=== PATIENT | male | born 1945 | race Caucasian/White ===

== ENCOUNTER 2021-01-07 13:37 | Emergency (ER) | payer OTHER ==
[2021-01-07 13:57] VITALS: BMI 27.0
[2021-01-07 14:27] LABS: EPI CELLS 1 /uL (0-25.1); HYALINE CASTS 1 /uL (0-3.1); PH,URINE 6.5 (5.0-8.0); URINE APPEARANCE TURBID; URINE BACTERIA >9,000 /uL (0-1359); URINE BILIRUBIN NEGATIVE (NEGATIVE); URINE COLOR YELLOW; URINE GLUCOSE (UA) NEGATIVE (NEGATIVE); URINE KETONE NEGATIVE (NEGATIVE); URINE LEUK ESTERASE 3+ (NEGATIVE); URINE NITRITE POSITIVE (NEGATIVE); URINE PROTEIN 2+ (NEGATIVE); URINE RBC 1248 /uL (0-23.9); URINE UROBILINOGEN 0.2 mg/dL (0.2-1.0); URINE WBC 4599 /uL (0-25.8)
[2021-01-07] MEDS ORDERED: CEFTRIAXONE 1 GM/50 ML BAG ONE (14:50)
[2021-01-07] MEDS ORDERED: SULFAMETHOXAZOLE/TRIMETHOPRIM 800MG/160MG D.S. TABLET PO ONE (14:50)
[2021-01-07] MEDS ORDERED: SULFAMETHOXAZOLE/TRIMETHOPRIM 800MG/160MG D.S. TABLET ONE (14:51)
[2021-01-07 15:16] LABS: BASO % 1.3 % (0-2.0); EOS % 2.3 % (0-4.5); HEMATOCRIT 38.4 % (35.4-49); HEMOGLOBIN 13.2 GM/dL (11.7-16.9); LYMPH % 8.3 % (8-40); MCH 32.3 pg (25.7-33.7); MCHC 34.3 g/dl (32.0-35.9); MEAN CELL VOLUME 94.2 fl (80-96); MEAN PLT VOLUME 8.3 fl (7.5-11.1); MONO % 8.9 % (3.8-10.2); NEUT % 79.2 % (42.8-82.8); PLATELET COUNT 210 K/MM3 (134-434); RBC 4.07 M/mm3 (4.00-5.60); RDW 14.2 % (11.9-15.9); WHITE BLOOD COUNT 9.9 K/mm3 (4.0-10.0)
[2021-01-07 15:42] LABS: CALCIUM 8.8 mg/dL (8.5-10.1)
[2021-01-07 15:43] LABS: BLOOD UREA NITROGEN 16.9 mg/dL (7-18)
[2021-01-07 15:46] LABS: CREATININE 0.6 mg/dL (0.55-1.3)
[2021-01-07 16:14] VITALS: BP 155/85; PULSE 82; TEMP 98
== END 2021-01-07 16:00 | disposition home or self-care (01) ==
LOC: JER 13:37
DX: N40.0 Benign prostatic hyperplasia without lower urinary tract symptoms (principal); T83.511A Infection and inflammatory reaction due to indwelling urethral catheter, initial encounter; T83.091A Other mechanical complication of indwelling urethral catheter, initial encounter
CPT/HCPCS: 36415; 80048; 81003; 85025; 87086; 87186; 99284-25